=== PATIENT | male | born 1990 | race Hispanic/Latino ===

== ENCOUNTER 2024-06-03 00:29 | Emergency (ER) | payer BC, SELFPAY ==
[2024-06-03 00:56] VITALS: BP 146/94; PULSE 95; RESP 16; TEMP 37.3; O2SAT 95
--- NOTE | 2024-06-03 01:33 | PC.NURSE ---
vrbo lidocaine with epi 1%
--- NOTE | 2024-06-03 01:33 | PC.NURSE ---
lac tray, gauze, abd pad, coban, betadine swabs, lido with epi placed at bedside for edp nicanor.
--- NOTE | 2024-06-03 02:27 | ED.SKABFB ---
HPI - Skin/Abscess/Foreign Bdy General Chief complaint: Skin/Abscess/Foreign Body Stated complaint: laceration to R elbow Time Seen by Provider: 06/03/24 01:19 Source: patient Mode of arrival: ambulatory Limitations: no limitations History of Present Illness HPI narrative: this is a 33-year-old male that presents to the emergency department for laceration to his right forearm sustained just prior to arrival. Reports he tripped in his garage and cut his elbow on the garage door. Reports bleeding and pain to the area. He is not up-to-date on tetanus. Denies decreased range of motion or numbness. Related Data Home Medications Medication Instructions Recorded Confirmed No Home Medications 06/03/24 06/03/24 Allergies Allergy/AdvReac Type Severity Reaction Status Date / Time No Known Allergies Allergy Verified 06/03/24 00:38 Review of Systems Review of Systems: CONSTITUTIONAL: Denies fever SKIN: reports laceration NEUROLOGIC: Denies numbness All systems reviewed & are unremarkable except as noted in HPI and below PMFSH Past Medical History Medical History (Updated 06/03/24 @ 02:29 by Nissa Colindres PA-C) No active medical problems Social History Social History (Updated 06/03/24 @ 02:30 by Nissa Colindres PA-C) Substance use: never Exam Narrative: GENERAL: Well-appearing, well-nourished, and in no acute distress. HEAD: Normocephalic, atraumatic. EYES: EOMI. EXTREMITIES: Normal range of motion. No edema. 6cm linear laceration into subcutaneous tissue over the right forearm. Normal radial pulse. Normal sensation SKIN: Warm, dry, no rash. NEURO: No focal deficits. Alert and oriented x3. PSYCH: Normal mood and affect Course Course Emergency Course: Patient was educated on further wound care Vital Signs Vital signs: Vital Signs Temperature 99.1 F 06/03/24 00:56 Pulse Rate 95 06/03/24 00:56 Respiratory Rate 16 06/03/24 00:56 Blood Pressure 146/94 H 06/03/24 00:56 Pulse Oximetry 95 06/03/24 00:56 Oxygen Delivery Room Air 06/03/24 00:56 Temperature 99.1 F 06/03/24 00:56 Pulse Rate 95 06/03/24 00:56 Respiratory Rate 16 06/03/24 00:56 Blood Pressure 146/94 H 06/03/24 00:56 Pulse Oximetry 95 06/03/24 00:56 Oxygen Delivery Room Air 06/03/24 00:56 MDM - Skin/Abscess/Foreign Bdy MDM Narrative Medical decision making narrative: patient presents to the emergency department after a laceration to his right for sustained just prior to arrival. Patient is neurovascularly intact. Wound was irrigated and closed with sutures. Patient was educated on further wound care. He is to follow up with primary provider. He was given warnings to the ER Differential Diagnosis Differential diagnosis: Likely other ( laceration, abrasion) Critical Care Time Critical Care Time Critical Care Time: No Discharge Plan Discharge Clinical Impression: Laceration of forearm, right Qualifiers: Encounter type: initial encounter Qualified Code(s): S51.811A - Laceration without foreign body of right forearm, initial encounter Patient Disposition: Home, Self-Care Condition: Stable Instructions: Care For Your Stitches (ED), Laceration (ED) Additional Instructions: Return to the emergency department if you experience fever, redness or swelling of your wound, abnormal drainage from your wound, or any other symptoms that are concerning to you. Apply antibiotic ointment daily. Do not soak the wound. Clean with mild soap and water daily Follow-up with your primary care doctor for suture removal in 10-14 days. Prescriptions: No Action No Home Medications Follow-up/Referrals: PHYSICIAN NOT ON STAFF,NONSTAFF [Primary Care Provider] -
[2024-06-03] MEDS: TETANUS,DIPHTHERIA,AC PERTUSSIS ADULT (0.5 ML) BOOSTRIX IM (02:43)
[2024-06-03] MEDS: LIDO 1%/EPINEPHRINE 1:100,000 20 ML VIAL INFILTRATE (02:43)
[2024-06-03 02:50] VITALS: BP 124/73; PULSE 94; RESP 16; TEMP 36.8; O2SAT 96
== END 2024-06-03 02:51 | disposition home or self-care (01) ==
LOC: ANHED 02:43
PROVIDERS: Emergency Provider Physician Assistant
DX: S51.811A Laceration without foreign body of right forearm, initial encounter (principal); Z23 Encounter for immunization; W01.198A Fall on same level from slipping, tripping and stumbling with subsequent striking against other object, initial encounter
CPT/HCPCS: 12001; 90471; 90715; 99282